=== PATIENT | male | born 1985 | race African-American/Black ===

== ENCOUNTER → 2020-09-13 | Outpatient (REF) ==
--- NOTE | 2020-09-14 03:56 | REPPI ---
INDICATION: DISABILITY DIAGNOSIS DETERMINATION IRREGULAR EKG COMPARISON: None. TECHNIQUE: PA and lateral. FINDINGS: The mediastinum and cardiac silhouette are normal. The lung hernandez are clear and without acute consolidation, effusion, or pneumothorax. The skeletal structures are intact and normal. IMPRESSION: No acute cardiopulmonary process. <Electronically signed by Dominick Vazquez > 09/14/20 [id number]
== END ==
LOC: M PLAIMG 11:42
PROVIDERS: ATTEND Internal Medicine
DX: Z00.00 Encounter for general adult medical examination without abnormal findings (principal)

== ENCOUNTER → 2020-09-20 | Outpatient (REF) | payer OTHER | LOC: M CARPUL 12:21 → EDUNIT# 12:30 → EDSTATUS 12:30 | PROVIDERS: ATTEND Internal Medicine | DX: Z00.00 Encounter for general adult medical examination without abnormal findings (principal) ==

== ENCOUNTER → 2020-11-18 | Outpatient (CLI) | payer OTHER ==
--- NOTE | 2020-11-20 19:39 | SLEEPCENT ---
DATE: 11/18/2020 NOCTURNAL POLYSOMNOGRAPHY ORDERED BY: NAREN CHOPRA Nocturnal polysomnography was performed for evaluation of sleep physiology. . Eight hours and 8 minutes of data were reviewed. There were 299.5 minutes of sleep identified. Sleep latency was prolonged at 60.6 minutes. REM latency was within normal limits at 103.5 minutes. Sleep architecture showed fragmentation with three REM cycles. Overall sleep efficiency was 62.8%. The electrocardiogram showed a sinus rhythm with an average heart rate of 75 beats per minute. EEG showed reasonably normal waveforms for wake and sleep. There were 238 respiratory events identified of 10 seconds in duration or greater for an apnea-hypopnea index of 47.7. The events were primarily obstructive, not exclusive to sleep stage nor body position. Arousals from respiratory events occurred 22.4 times per hour, and oxygen desaturations were seen into the low 80s with some minor activity in the limb leads. Limb movement arousal index was 1.8. IMPRESSIONS: 1. Obstructive sleep apnea syndrome (G47.33). 2. Apnea-hypopnea index 47.7. RECOMMENDATION: The patient should be encouraged to return to [facility]. In the interim, alcohol and sedative avoidance should be practiced and caution exercised during the operation of motor vehicles.
== END ==
LOC: EDSTATUS 20:00 → M SLEEP 20:00
PROVIDERS: ATTEND Physician Assistant Medical
DX: G47.33 Obstructive sleep apnea (adult) (pediatric) (principal)

== ENCOUNTER → 2020-12-18 | Outpatient (CLI) | payer OTHER ==
--- NOTE | 2020-12-19 18:11 | SLEEPCENT ---
DATE: 12/18/2020 NOCTURNAL POLYSOMNOGRAPHY CPAP TITRATION ORDERED BY: NAREN CHOPRA Nocturnal polysomnography was performed for the titration of pressure therapy in this patient with severe obstructive sleep apnea syndrome, apnea-hypopnea index of 47.7. For testing a ResMed Quattro full face mask of large size was used, 4 cm of water pressure were applied to the circuit, and the lights were extinguished. Eight hours and 22 minutes of data were reviewed. There were 326 minutes of sleep identified. Sleep latency was prolonged at 28 minutes. REM latency was short at 50 minutes. Sleep architecture was good with three REM cycles. There was a period of wake in the middle portion of the study resulting in reduced sleep efficiency of 65.7%. The electrocardiogram showed a sinus rhythm with an average heart rate of 68 beats per minute. Rate ranged 55-85. EEG showed normal waveforms for wake and sleep. Respiratory events were fully palliated with CPAP at a pressure of 11 and remaining measures of sleep physiology were normal. IMPRESSION: Obstructive sleep apnea syndrome (G47.33). RECOMMENDATION: Nightly use of pressure therapy 11 cm of water.
== END ==
LOC: M SLEEP 20:00
PROVIDERS: ATTEND Physician Assistant Medical
DX: G47.33 Obstructive sleep apnea (adult) (pediatric) (principal)